=== PATIENT | male | born 1960 | race Caucasian/White ===

== ENCOUNTER → 2018-06-03 | Outpatient (CLI) | payer OTHER | LOC: WCC 09:15 | PROVIDERS: ATTEND Podiatrist Foot & Ankle Surgery | DX: T81.89XA Other complications of procedures, not elsewhere classified, initial encounter (principal); E11.9 Type 2 diabetes mellitus without complications; E78.4 Other hyperlipidemia; I10 Essential (primary) hypertension; M86.671 Other chronic osteomyelitis, right ankle and foot; M96.89 Other intraoperative and postprocedural complications and disorders of the musculoskeletal system | CPT/HCPCS: 36415; 82948 ==

== ENCOUNTER → 2018-06-10 | Outpatient (CLI) | payer OTHER | LOC: WCC 15:05 | PROVIDERS: ATTEND Podiatrist Foot & Ankle Surgery | DX: T81.89XA Other complications of procedures, not elsewhere classified, initial encounter (principal); M86.671 Other chronic osteomyelitis, right ankle and foot; M96.89 Other intraoperative and postprocedural complications and disorders of the musculoskeletal system ==

== ENCOUNTER → 2018-06-12 | Outpatient (CLI) | payer OTHER | LOC: WCC 13:04 | PROVIDERS: ATTEND Podiatrist Foot & Ankle Surgery | DX: T81.89XA Other complications of procedures, not elsewhere classified, initial encounter (principal); M96.89 Other intraoperative and postprocedural complications and disorders of the musculoskeletal system; M86.671 Other chronic osteomyelitis, right ankle and foot; E11.9 Type 2 diabetes mellitus without complications; I73.9 Peripheral vascular disease, unspecified; I10 Essential (primary) hypertension; E78.4 Other hyperlipidemia ==

== ENCOUNTER → 2018-06-13 | Outpatient (CLI) | payer OTHER | LOC: WCC 13:15 | PROVIDERS: ATTEND Internal Medicine Infectious Disease | DX: T81.89XA Other complications of procedures, not elsewhere classified, initial encounter (principal); M96.89 Other intraoperative and postprocedural complications and disorders of the musculoskeletal system; M86.671 Other chronic osteomyelitis, right ankle and foot; E11.9 Type 2 diabetes mellitus without complications; E78.4 Other hyperlipidemia; I10 Essential (primary) hypertension; I73.9 Peripheral vascular disease, unspecified ==

== ENCOUNTER → 2018-06-17 | Outpatient (CLI) | payer OTHER | LOC: WCC 09:11 | PROVIDERS: ATTEND Podiatrist Foot & Ankle Surgery | DX: T81.89XA Other complications of procedures, not elsewhere classified, initial encounter (principal); M96.89 Other intraoperative and postprocedural complications and disorders of the musculoskeletal system; M86.671 Other chronic osteomyelitis, right ankle and foot; E11.9 Type 2 diabetes mellitus without complications; I10 Essential (primary) hypertension; I73.9 Peripheral vascular disease, unspecified; E78.4 Other hyperlipidemia ==

== ENCOUNTER → 2018-06-20 | Outpatient (CLI) | payer OTHER | LOC: WCC 12:33 | PROVIDERS: ATTEND Podiatrist Foot & Ankle Surgery | DX: T81.89XA Other complications of procedures, not elsewhere classified, initial encounter (principal); M96.89 Other intraoperative and postprocedural complications and disorders of the musculoskeletal system; E11.9 Type 2 diabetes mellitus without complications; M86.671 Other chronic osteomyelitis, right ankle and foot; I73.9 Peripheral vascular disease, unspecified; I10 Essential (primary) hypertension; E78.4 Other hyperlipidemia ==

== ENCOUNTER → 2018-06-20 | Outpatient (CLI) | payer OTHER ==
--- NOTE | 2018-06-20 17:55 | Diagnostic Imaging Report ---
Bone Scan, three-phase - feet and ankles Reason for exam: 58 M with non-healing wound on dorsum of right foot; patient is diabetic. Radiopharmaceutical: Tc-99m MDP 27 mCi Comparison: None Following intravenous administration of the radiopharmaceutical, dynamic flow and immediate blood pool images of the feet and ankles followed by delayed spot images were obtained. Flow and blood pool images show diffusely increased tracer to the right foot and ankle compared to the left with focal increased tracer in the mid foot region. The delayed images show focal markedly increased tracer in the mid foot region of the right foot. Tracer is increased in multiple talar bones. Impression: Scan findings are worrisome for osteomyelitis in the right mid foot, however, Charcot joint could give the same appearance. A labeled WBC study would add specificity to the evaluation to distinguish between these two etiologies. Signed by: Dr. Maame Rosario M.D. on 06/20/2018 4:34 PM
== END ==
LOC: NM 09:18
PROVIDERS: ATTEND Internal Medicine Infectious Disease
DX: M86.671 Other chronic osteomyelitis, right ankle and foot (principal)
CPT/HCPCS: 78315; A9503

== ENCOUNTER → 2018-06-24 | Outpatient (CLI) | payer OTHER | LOC: WCC 08:02 | PROVIDERS: ATTEND Podiatrist Foot & Ankle Surgery | DX: T81.89XA Other complications of procedures, not elsewhere classified, initial encounter (principal); M96.89 Other intraoperative and postprocedural complications and disorders of the musculoskeletal system; E11.9 Type 2 diabetes mellitus without complications; M86.671 Other chronic osteomyelitis, right ankle and foot; I73.9 Peripheral vascular disease, unspecified; I10 Essential (primary) hypertension; E78.4 Other hyperlipidemia ==